=== PATIENT | male | born 1990 | race Caucasian/White ===

== ENCOUNTER 2024-06-02 13:21 | Emergency (ER) | payer OTHER, SELFPAY ==
[2024-06-02 13:30] VITALS: BP 128/71
[2024-06-02 14:08] LABS: % Basophils 0.5 % (0-2); % Eosinophils 0.9 % (0-6); % Immature Granulocytes 0.2 % (0-0.5); % Lymphocytes 6.5 % (20.5-51.1); % Monocytes 6.2 % (1.7-9.3); % Neutrophils 85.7 % (42.2-75.2); Absolute Eosinophils 0.1 10^3/uL (0-0.7); Absolute Lymphocytes 0.6 10^3/uL (1.2-3.4); Absolute Monocytes 0.5 10^3/uL (0.1-0.6); Absolute Neutrophils 7.2 10^3/uL (1.4-6.5); Hematocrit 40.9 % (39.0-52.0); Mean Corp Hgb Conc. 34.2 g/dL (33.0-37.0); Mean Corpuscular Hgb 27.8 pg (27.0-31.0); Mean Corpuscular Volume 81.2 fL (80.0-94.0); Mean Platelet Volume 9.5 fL (7.4-10.4); Nucleated Red Blood Cells % 0 % (-); Platelet Count 123 10^3/uL (130-400); Red Blood Cell Count 5.04 10^6/uL (4.70-6.10); Red Cell Dist. Width 12.7 % (11.5-14.5); White Blood Cell Count 8.5 10^3/uL (4.8-10.8)
[2024-06-02 14:16] LABS: COVID-19 Antigen Negative (Negative)
[2024-06-02 14:19] LABS: ALT (SGPT) 149 U/L (0-50); AST (SGOT) 79 U/L (17-59); Albumin 4.5 g/dl (3.5-5.0); Alkaline Phosphatase 132 U/L (38-126); Blood Urea Nitrogen 14 mg/dl (9-20); Calcium 9.3 mg/dl (8.4-10.2); Carbon Dioxide 29 mmol/L (22-30); Chloride 97 mmol/L (98-107); Glucose 135 mg/dl (70-99); Lipase 74 U/L (23-300); Potassium 4.3 mmol/L (3.5-5.1); Sodium 135 mmol/L (135-145); Total Protein 7.3 g/dl (6.3-8.2); eGFR > 60.00
--- NOTE | 2024-06-02 14:58 | ED.GENMED ---
History of Present Illness
General
Chief Complaint: Fever
Time Seen by Provider: 06/02/24 14:58
History of Present Illness
History of Present Illness:
TIME OF INITIAL ENCOUNTER: 3 PM
HPI: Patient presents with multiple complaints. He had been having nausea with diarrhea up until a couple of days ago. He intermittently still has nausea especially related to pain in the right shoulder blade area. He denies any injury to the
right shoulder blade region. He had a similar pain years ago regarding the left shoulder blade. He reportedly tested negative for COVID and flu. Of note, a coworker was recently told that he may have had norovirus. Pain dramatically worsens
with movement of the right upper extremity. The patient also states that he feels like he is having a migraine now. The nausea currently is primarily associated with pain in the right shoulder. He denies any respiratory or urinary complaints.
EXAM:
GENERAL: Appears somewhat uncomfortable particular with movement of the right upper extremity, febrile
HEENT: Moist oral mucosa, excellent chin to chest, no meningeal signs
CARDIOVASCULAR: No murmurs, borderline tachycardic heart rate, regular rhythm, No chest wall tenderness
PULMONARY: No respiratory distress, breath sounds are clear and equal
ABDOMEN: Soft with no peritoneal signs, no tenderness
NEUROLOGIC: Excellent strength all extremities, no coordination deficits
BACK: There is tenderness to the medial aspect of the right scapular region
PSYCHIATRIC: Appropriate mental status, normal insight and judgement
EXTREMITIES: Nontender, no edema, moves all extremities equally
SKIN: No rash, no lesions
NUMBER AND COMPLEXITY OF PROBLEMS ADDRESSED AT THE ENCOUNTER
� Chronic conditions affecting care: No significant past medical history
� Acute Exacerbation and/or Progression of Chronic Illness: This is an acute problem
� Differential Diagnosis includes: Viral syndrome, dehydration, KHLOE, rotator cuff strain, electrolyte abnormality, migraine
AMOUNT AND/OR COMPLEXITY OF DATA TO BE REVIEWED AND ANALYZED
� I performed an independent evaluation of and my interpretation is:
EKG:
CT:
X-rays:
Laboratory Studies: CBC unremarkable, chemistries unremarkable however mild transaminase elevation noted. Normal total bili. COVID and flu negative.
Other:
� Review of other/old records: No old records available for review
� Clinical information was obtained by an independent historian: None needed
� Prescriptions/Medications Considered but not given:
� Further testing considered but not performed: Considered chest x-ray x-ray however the breath sounds are clear and equal and there is no bony tenderness and no trauma
RISK OF COMPLICATIONS AND/OR MORBIDITY OR MORTALITY OF PATIENT MANAGEMENT
� Social determinants of health affecting care: Lives at home
� Discussion with other providers:
� Escalation of care including admission/observation vs risk of discharge considered: The patient presents with multiple complaints including fever, right periscapular pain, nausea, resolved diarrhea, and migraine type of
symptoms. Initial blood work relatively unremarkable. Fluids, Tylenol, Toradol, Reglan with Benadryl.
ANY OTHER UPDATES:
4:30 PM: On reassessment, the patient overall feels improved. Migraine has improved but persists a little. Right periscapular pain persists but overall improved after Toradol. He will continue NSAIDs but is concerned if the pain in the right
shoulder blade recurs�will give very short course of chronic analgesia.
Phy Exam
Physical Exam
Physical Exam:
See HPI
Sepsis
Sepsis Screening
Sepsis Assessment: Sepsis Ruled Out
Sepsis Screen
Sepsis Screen: Sepsis Ruled Out
Date: 06/02/24
Time: 16:56
Course
Orders/Labs/Results
Orders:
Orders
06/02/24 13:46
COVID-19 Antigen Urgent
Source: Nasal Swab
Complete Blood Count/With Diff Urgent
Comprehensive Metabolic Panel Urgent
Lipase Urgent
Influenza A+B Rapid Molecular Urgent
CHIDI Source: Nasal Swab
Specimen Description:
06/02/24 15:10
Sling Right-Treatment ONCE
0.9% Sodium Chloride 1000 ml [Nss] 1,000 ml IV BOLUS
Ketorolac [Toradol] 15 mg IV NOW STA
Metoclopramide [Reglan] 10 mg IV NOW STA
06/02/24 15:35
Diphenhydramine [Benadryl] 25 mg IV NOW STA
Abnormal Lab Results
06/02/24
13:46
Plt Count 123 L 10^3/uL
(130-400)
Absolute Neuts (auto) 7.2 H 10^3/uL
(1.4-6.5)
Absolute Lymphs (auto) 0.6 L 10^3/uL
(1.2-3.4)
Neutrophils % 85.7 H %
(42.2-75.2)
Lymphocytes % 6.5 L %
(20.5-51.1)
Chloride 97 L mmol/L
(98-107)
Glucose 135 H mg/dl
(70-99)
AST 79 H U/L
(17-59)
ALT 149 H U/L
(0-50)
Alkaline Phosphatase 132 H U/L
(38-126)
06/02/24 13:46
06/02/24 13:46
Vital Signs
Initial and Last Documented VS:
Initial Vital Signs
Temp Pulse Resp BP Pulse Ox
38.5 C H 106 16 128/71 100
06/02/24 13:30 06/02/24 13:30 06/02/24 13:30 06/02/24 13:30 06/02/24 13:30
Last Documented Vital Signs
Temp Pulse Resp BP Pulse Ox
38.5 C H 98 26 146/58 96
06/02/24 13:30 06/02/24 16:30 06/02/24 16:30 06/02/24 16:00 06/02/24 16:30
*Critical Care Note
Total Time (30-74mins, 75-104mins- exclusive of procedures): Not Applicable
ED Attending Note
-
Portions of this chart may have been created with voice recognition software.� Occasional wrong word or��sound alike� substitutions may have occurred due to the inherent limitations of voice recognition software.
Discharge Plan
Departure
Patient Disposition: Home (Routine Discharge)
Date of Disposition: 06/02/24
Time of Disposition: 16:32
Patient with high blood pressure during this ER visit?: Yes
Discharge Problem:
Acute viral syndrome
Instructions: Fever, Adult (DC), Viral Syndrome (DC)
Prescriptions:
New
oxycodone-acetaminophen [Percocet] 5-325 mg tablet
1 - 2 tab PO Q6HPRN PRN (Reason: pain) Qty: 10 0RF
Referrals:
Ti Rojas MD [Active] - Follow up in 2-3 days
Activity Restrictions/Additional Instructions:
We gave you a bag of fluid, IV Toradol, IV Reglan with Benadryl. Overall your blood work is unremarkable however your liver numbers are just minimally elevated of doubtful clinical significance. COVID and flu test are negative. Use the sling for
comfort. I am also given the contact information for local Ortho, Dr. Rojas, if symptoms at the right shoulder blade persist.
Interventions
Interventions:
*Risk Screen - Suicide Last Done: 06/02/24 15:43
*General Assessment Last Done: 06/02/24 15:43
*Neglect/Abuse Screening Last Done: 06/02/24 15:43
ED- Fall Risk Assessment Last Done: 06/02/24 15:44
*ED COVID-19 Vaccine History Last Done: 06/02/24 15:43
ED- Neurological Assessment Last Done: 06/02/24 15:44
ED-Skin Assessment Last Done: 06/02/24 15:44
Discharge Date and Time
Print Language: DIVEHI
[2024-06-02] MEDS: TORADOL 15 MG IV (15:36)
[2024-06-02] MEDS: REGLAN 10 MG IV (15:36)
[2024-06-02] MEDS: BENADRYL 25 MG IV (15:36)
[2024-06-02] MEDS: NSS 1000 IV (15:37)
[2024-06-02 16:00] VITALS: BP 146/58
[2024-06-02 17:00] VITALS: BP 118/50
== END 2024-06-02 17:30 | disposition home or self-care (01) ==
LOC: EMR 13:21
PROVIDERS: Emergency Medicine; EMERGENCY PHYSICIAN Emergency Medicine
DX: B34.9 Viral infection, unspecified (principal); G43.909 Migraine, unspecified, not intractable, without status migrainosus
CPT/HCPCS: 96374; 96375; 96361; 99284; 80053; 83690; 85025; 87502; 87811

== ENCOUNTER 2024-06-04 16:32 | Emergency (ER) | payer OTHER, SELFPAY ==
[2024-06-04 16:32] VITALS: BMI 22.7
[2024-06-04 16:34] VITALS: BP 122/79
[2024-06-04 16:59] LABS: % Basophils 0.4 % (0-2); % Eosinophils 0.8 % (0-6); % Immature Granulocytes 0.8 % (0-0.5); % Lymphocytes 12.9 % (20.5-51.1); % Monocytes 10.7 % (1.7-9.3); % Neutrophils 74.4 % (42.2-75.2); Absolute Eosinophils 0.1 10^3/uL (0-0.7); Absolute Immature Granulocytes 0.1 10^3/uL (0-0.05); Absolute Lymphocytes 1.4 10^3/uL (1.2-3.4); Absolute Monocytes 1.1 10^3/uL (0.1-0.6); Absolute Neutrophils 7.9 10^3/uL (1.4-6.5); Hematocrit 40.8 % (39.0-52.0); Hemoglobin 13.9 g/dL (13.0-18.0); Mean Corp Hgb Conc. 34.1 g/dL (33.0-37.0); Mean Corpuscular Hgb 27.5 pg (27.0-31.0); Mean Corpuscular Volume 80.8 fL (80.0-94.0); Mean Platelet Volume 9.3 fL (7.4-10.4); Nucleated Red Blood Cells % 0 % (-); Platelet Count 135 10^3/uL (130-400); Red Blood Cell Count 5.05 10^6/uL (4.70-6.10); Red Cell Dist. Width 12.6 % (11.5-14.5); White Blood Cell Count 10.6 10^3/uL (4.8-10.8)
[2024-06-04 17:20] LABS: ALT (SGPT) 87 U/L (0-50); AST (SGOT) 35 U/L (17-59); Albumin 3.8 g/dl (3.5-5.0); Alkaline Phosphatase 132 U/L (38-126); Blood Urea Nitrogen 13 mg/dl (9-20); Calcium 9.1 mg/dl (8.4-10.2); Carbon Dioxide 30 mmol/L (22-30); Chloride 99 mmol/L (98-107); Glucose 164 mg/dl (70-99); Lipase 48 U/L (23-300); Potassium 4.2 mmol/L (3.5-5.1); Sodium 137 mmol/L (135-145); Total Bilirubin 0.7 mg/dl (0.2-1.3); Total Protein 7.1 g/dl (6.3-8.2); eGFR > 60.00
--- NOTE | 2024-06-04 18:27 | ED.GENMED ---
History of Present Illness
<DO Velasquez Whiting Last Filed: 06/06/24 00:00>
General
Chief Complaint: Abdominal Pain
Source: patient
Time Seen by Provider: 06/04/24 18:14
History of Present Illness
History of Present Illness:
33-year-old male presents to the emergency room complaining of pain in his right posterior thorax starting from the inferior scapula up to the shoulder. Pain is worse with deep inspiration as well as some movement. Patient has been unwell for the
past 6 days. Symptoms began with some abdominal pain, nausea, vomiting and diarrhea. Tmax has been 102. He continued to have fevers up until today. Fevers do improve once he takes Tylenol. He has no appetite over the past couple days. Patient
was seen in the emergency room a couple ago. He had labs performed which were unremarkable. Patient felt better after Toradol and was discharged.
Phy Exam
<Chester Cortez DO - Last Filed: 06/06/24 00:00>
Physical Exam
Physical Exam:
General: Awake, Alert, Oriented X3. No acute distress.
Vitals: Afebrile, normal pulse ox, normal blood pressure
Head: Atraumatic
Eyes: Pupils equal, EOMI
Throat: Airway intact, no exudates
Neck: Trachea midline
Lungs: Clear and equal b/l
Heart: Regular rate, no murmurs
Abd: Soft, minimal upper abdominal pain, No pulsatile mass
Back: Mild tenderness palpation about the scapula without any area of maximum tenderness.
Neuro: Nonfocal
Skin: Warm, dry, no rash
Extremities: pulses equal b/l, no edema
Course
<DO Velasquez Whiting Last Filed: 06/06/24 00:00>
Orders/Labs/Results
Orders:
Orders
06/04/24 16:43
Complete Blood Count/With Diff Urgent
Comprehensive Metabolic Panel Urgent
Lipase Urgent
06/04/24 18:25
Ketorolac [Toradol] 15 mg IV NOW STA
06/04/24 18:26
US Abdomen Complete/Upper Urgent
Comment:
Reason For Exam: ruq pain, elevated lft's
06/04/24 18:58
Electrocardiogram (*1) Urgent
Reason for Study: Chest Pain
EKG- Treatment ONCE
06/04/24 19:00
D-Dimer Urgent
06/04/24 19:49
CT Chest PE Study Urgent
Comment:
Reason For Exam: Right posterior thoracic pain
06/04/24 21:00
0.9% Sodium Chloride 1000 ml [Nss] 1,000 ml IV BOLUS
06/04/24 22:08
Amoxicillin 875 mg/Clav 125 mg [Augmentin 875 mg/125 mg] 1 tablet PO NOW STA
Azithromycin [Zithromax] 500 mg PO NOW STA
Abnormal Lab Results
06/04/24 06/04/24
16:43 19:00
Abs Immat Gran (auto) 0.1 H 10^3/uL
(0-0.05)
Absolute Neuts (auto) 7.9 H 10^3/uL
(1.4-6.5)
Absolute Monos (auto) 1.1 H 10^3/uL
(0.1-0.6)
Immature Gran % 0.8 H %
(0-0.5)
Lymphocytes % 12.9 L %
(20.5-51.1)
Monocytes % 10.7 H %
(1.7-9.3)
D-Dimer 1.26 H ug/mlFEU
(0.00-0.50)
Glucose 164 H mg/dl
(70-99)
ALT 87 H U/L
(0-50)
Alkaline Phosphatase 132 H U/L
(38-126)
06/04/24 16:43
06/04/24 16:43
Vital Signs
Initial and Last Documented VS:
Initial Vital Signs
Temp Pulse Resp BP Pulse Ox
97.8 F 85 16 122/79 98
06/04/24 16:34 06/04/24 16:34 06/04/24 16:34 06/04/24 16:34 06/04/24 16:34
Last Documented Vital Signs
Temp Pulse Resp BP Pulse Ox
97.8 F 85 17 118/50 97
06/04/24 16:34 06/04/24 16:34 06/04/24 19:14 06/04/24 22:00 06/04/24 22:15
<Skip Lipscomb MD - Last Filed: 06/05/24 02:17>
Orders/Labs/Results
Orders:
Orders
06/04/24 16:43
Complete Blood Count/With Diff Urgent
Comprehensive Metabolic Panel Urgent
Lipase Urgent
06/04/24 18:25
Ketorolac [Toradol] 15 mg IV NOW STA
06/04/24 18:26
US Abdomen Complete/Upper Urgent
Comment:
Reason For Exam: ruq pain, elevated lft's
06/04/24 18:58
Electrocardiogram (*1) Urgent
Reason for Study: Chest Pain
EKG- Treatment ONCE
06/04/24 19:00
D-Dimer Urgent
06/04/24 19:49
CT Chest PE Study Urgent
Comment:
Reason For Exam: Right posterior thoracic pain
06/04/24 21:00
0.9% Sodium Chloride 1000 ml [Nss] 1,000 ml IV BOLUS
06/04/24 22:08
Amoxicillin 875 mg/Clav 125 mg [Augmentin 875 mg/125 mg] 1 tablet PO NOW STA
Azithromycin [Zithromax] 500 mg PO NOW STA
Abnormal Lab Results
06/04/24 06/04/24
16:43 19:00
Abs Immat Gran (auto) 0.1 H 10^3/uL
(0-0.05)
Absolute Neuts (auto) 7.9 H 10^3/uL
(1.4-6.5)
Absolute Monos (auto) 1.1 H 10^3/uL
(0.1-0.6)
Immature Gran % 0.8 H %
(0-0.5)
Lymphocytes % 12.9 L %
(20.5-51.1)
Monocytes % 10.7 H %
(1.7-9.3)
D-Dimer 1.26 H ug/mlFEU
(0.00-0.50)
Glucose 164 H mg/dl
(70-99)
ALT 87 H U/L
(0-50)
Alkaline Phosphatase 132 H U/L
(38-126)
06/04/24 16:43
06/04/24 16:43
Vital Signs
Initial and Last Documented VS:
Initial Vital Signs
Temp Pulse Resp BP Pulse Ox
97.8 F 85 16 122/79 98
06/04/24 16:34 06/04/24 16:34 06/04/24 16:34 06/04/24 16:34 06/04/24 16:34
Last Documented Vital Signs
Temp Pulse Resp BP Pulse Ox
97.8 F 85 17 118/50 97
06/04/24 16:34 06/04/24 16:34 06/04/24 19:14 06/04/24 22:00 06/04/24 22:15
Arthurlt;Chester Cortez DO - Last Filed: 06/06/24 00:00>
*Radiology
Radiology exam reviewed: radiology read reviewed
*Pulse Oximetry
Patient hypoxic: no
*EKG
Interpreted by ED Provider?: Yes
Heart Rate: 76
Rate: normal
Rhythm: sinus
Rochert: normal axis
Interval: normal interval
QRS Pattern: normal QRS
Ischemia: no ischemia
*Tiltrotor Crew Chief Interpretation
Rate: normal
Interpretation: normal
Rhythm: sinus
<Skip Lipscomb MD - Last Filed: 06/05/24 02:17>
*Critical Care Note
Total Time (30-74mins, 75-104mins- exclusive of procedures): Not Applicable
<Skip Lipscomb MD - Last Filed: 06/05/24 02:17>
Update Note
Update Note:
UPDATE (Skip Lipscomb MD)
I have seen and evaluated the patient after signout and reviewed all labs and imaging.
Focused HPI: This is a 33-year-old male with no reported chronic medical issues who presents to the emergency room with his who is an orthopedic PA�presents for the second time complaining of right scapular pain, fever and some GI issues over
the past few days. He initially presented Sunday with fever nausea, vomiting, diarrhea, abdominal pain and scapular pain; he had marginally abnormal LFTs symptoms were thought to be due to a viral syndrome. He was given some pain control and he
says that this has helped but particularly his scapular pain has been consistent. Pain starts at the base of the scapula radiates up towards the upper trapezius/neck; it is worse with certain movements and worse with deep inspiration. He did have
some associated abdominal pain at first but this has improved. Nausea/vomiting/diarrhea has improved. Fevers have persisted. Denies trauma or injury.
Physical exam: Awake and alert not in distress. Vital signs all normal. He has no reproducible tenderness in the scapular region, trapezius region. No abdominal, chest wall tenderness.
Medical Decision Makin-year-old male presents for the second time complaining mainly of pain in the right scapular region in the setting of recent fevers, GI issues as well. He had lab work sent off including CBC which showed no clinically
significant abnormalities. His CMP showed marginally elevated LFTs which are actually improving from prior. He had an upper abdominal ultrasound which is negative for any acute pathology. His D-dimer was marginally elevated so he was sent for a
CT of the chest and this was negative for pulmonary embolism although he did have a small right pleural effusion and atelectasis at the right lung base. His clinical picture does seem most consistent with a viral syndrome and it could be that his
symptoms are related to pleurisy however given the small pleural effusion and groundglass opacities at the lung base I wonder if she could have a minor pneumonia with pleurisy. He could also have a radiculopathy although it is not consistently
reproducible with to movement. I do not think it would be unreasonable to trial some antibiotics at this point his vitals have been stable he has no clear emergent pathology I think he is stable for discharge follow-up with his primary doctor. He
feels very comfortable with this.
ED Attending Note
<Chester Cortez DO - Last Filed: 06/06/24 00:00>
-
Portions of this chart may have been created with voice recognition software.� Occasional wrong word or��sound alike� substitutions may have occurred due to the inherent limitations of voice recognition software.
Discharge Plan
Departure
Patient Disposition: Home (Routine Discharge)
Date of Disposition: 06/04/24
Time of Disposition: 22:05
Patient with high blood pressure during this ER visit?: No
Discharge Problem:
Pain of right scapula, Pleural effusion, Abnormal LFTs, Nausea vomiting and diarrhea
Instructions: Pneumonia in adults - Discharge instructions
Prescriptions:
New
amoxicillin-pot clavulanate 875-125 mg tablet
1 tab PO BID Qty: 14 0RF
azithromycin [Zithromax] 250 mg tablet
250 mg PO DAILY Qty: 4 0RF
No Action
oxycodone-acetaminophen [Percocet] 5-325 mg tablet
1 - 2 tab PO Q6HPRN PRN (Reason: pain) Qty: 10 0RF
Referrals:
Cassandra Mckeon, DO [Family Provider] - Follow up in 2-3 days
Activity Restrictions/Additional Instructions:
Thank you for visiting the Emergency Department at [facility].
1. Please schedule a follow up appointment as directed. Call first thing tomorrow morning to make an appointment.
2. If indicated, please take your medications as instructed and indicated on discharge paperwork.
3. If any of your symptoms do not improve, or persist, or become more severe within 6-12 hours, please return to the emergency department for further care.
4. Please return to the emergency department if you develop a headache, neck pain/stiffness, fever greater than 100.4F, chest pain, shortness of breath, persistent nausea, vomiting, slurred speech, difficulty walking, numbness/tingling, weakness,
signs of infection or any other symptoms that are worrisome to you.
Please call [phone] if you have any questions.
Interventions
Interventions:
*Risk Screen - Suicide Last Done: 06/04/24 16:34
*General Assessment Last Done: 06/04/24 16:34
*Neglect/Abuse Screening Last Done: 06/04/24 16:34
ED- Fall Risk Assessment Last Done: 06/04/24 19:16
*ED COVID-19 Vaccine History Last Done: 06/04/24 16:34
*Nursing Disposition Last Done: 06/04/24 22:31
ZT-Uzkzdo-Swhjpjxytk Assessment Last Done: 06/04/24 19:16
Discharge Date and Time
Discharge Date/Time: 06/04/24 22:32
Print Language: AUSTRALIAN
[2024-06-04] MEDS: TORADOL 15 MG IV (18:54)
[2024-06-04 19:14] VITALS: BP 129/68
[2024-06-04 19:45] LABS: D-Dimer 1.26 ug/mlFEU (0.00-0.50)
[2024-06-04 20:16] VITALS: BP 118/68
[2024-06-04 21:00] VITALS: BP 128/61
[2024-06-04] MEDS: NSS 1000 IV (21:00)
[2024-06-04 22:00] VITALS: BP 118/50
[2024-06-04] MEDS: ZITHROMAX 500 MG PO (22:23)
[2024-06-04] MEDS: AUGMENTIN 875 MG/125 MG 1 TABLET PO (22:23)
== END 2024-06-04 22:32 | disposition home or self-care (01) ==
LOC: EMR 16:32
PROVIDERS: Student in an Organized Health Care Education/Training Program; EMERGENCY PHYSICIAN Emergency Medicine; FAMILY PHYSICIAN Family Medicine
DX: M25.511 Pain in right shoulder (principal); J90 Pleural effusion, not elsewhere classified; R79.89 Other specified abnormal findings of blood chemistry; R19.7 Diarrhea, unspecified; R11.2 Nausea with vomiting, unspecified
CPT/HCPCS: 99284; 96374; 96361; 71275; 76700; 80053; 83690; 85025; 85379; 93005; Q9967

== ENCOUNTER → 2024-06-12 13:24 | Outpatient (REF) | payer OTHER, SELFPAY | LOC: HWRAD 13:24 | PROVIDERS: ATTENDING PHYSICIAN Internal Medicine | DX: M25.511 Pain in right shoulder (principal); R06.02 Shortness of breath; J90 Pleural effusion, not elsewhere classified; R74.8 Abnormal levels of other serum enzymes; J18.9 Pneumonia, unspecified organism | CPT/HCPCS: 71046; 72050 ==